=== PATIENT | female | born 1945 | race Caucasian/White ===

== ENCOUNTER 2017-07-10 09:39 | Inpatient (IN) | payer OTHER ==
[2017-05-25 09:58] VITALS: BMI 35.0
--- NOTE | 2017-05-25 10:26 | PAT Medication Instructions ---
Service Date May 25, 2017. Current Home Medication List Aspirin (Aspirin Ec), 81 MG PO 3XWEEK Ibuprofen Tab (Advil), 400 MG PO PRN Simvastatin (Zocor), 10 MG PO QPM Medication Instructions For Your Scheduled Surgery - Continue as directed: Aspirin (Aspirin Ec), 81 MG PO 3XWEEK - Hold the following medications the morning of surgery: Ibuprofen Tab (Advil), 400 MG PO PRN (otherwise okay to continue per surgeon) - Take the following medications as scheduled the night before surgery: Simvastatin (Zocor), 10 MG PO QPM Nothing to eat or drink after midnight If you have any questions please call us at [phone] or [phone] or [phone]
[2017-05-25 10:58] LABS: BASO % 0.5 %; BASO ABS # 0.02 K/uL (0-0.2); COMPLETE YES; EOS % 2.7 %; HEMATOCRIT 39.3 % (37-47); IG% 0.2 %; LYMPH % 22.2 %; LYMPH ABS # 0.91 K/uL (1.2-3.4); MEAN CELL VOLUME 86.4 fL (80-100); MEAN CORPUSCULAR HEMOGLOBIN 29.7 pg (25-34); MEAN CORPUSCULAR HGB CONC 34.4 g/dl (32-36); MEAN PLATELET VOLUME 9.7 fL (7.4-10.4); MONO % 9.3 %; NEUT % 65.1 %; PLATELET COUNT 168 K/uL (130-400); RED BLOOD COUNT 4.55 M/uL (4.2-5.4)
--- NOTE | 2017-05-25 11:13 | DIAGNOSTIC IMAGING REPORT ---
CHEST PREADMISSION(PA/LAT) CLINICAL HISTORY: Preoperative chest COMPARISON STUDY: No previous studies for comparison. FINDINGS: The heart is mildly enlarged. There is no failure. There is no focal pulmonary consolidation. There are no pleural effusions.[ IMPRESSION: No active disease in the chest. Electronically signed by: Jem Munoz M.D. 05/25/2017 11:11 AM Dictated Date/Time: 05/25/2017 11:04 AM
[2017-05-25 11:19] LABS: PARTIAL THROMBOPLASTIN RATIO 1.1; PROTHROMBIN TIME (PATIENT) 11.1 SECONDS (9.0-12.0)
[2017-05-25 12:35] LABS: BUN/CREATININE RATIO 22.4 (10-20); CREATININE 0.77 mg/dl (0.60-1.20); POTASSIUM 4.6 mmol/L (3.5-5.1)
--- NOTE | 2017-07-05 22:56 | HISTORY & PHYSICAL EXAMINATION ---
DATE OF ADMISSION: 07/10/2017 CHIEF COMPLAINT: Bilateral knee pain and discomfort, right side greater than left. HISTORY OF PRESENT ILLNESS: This is a 72-year-old female who presents for treatment of her knees. She got a fairly long history of bilateral knee pain and discomfort, right side bit worse than left. Gradually this has gotten worse over the past several years. She initially responded to injections, but this has become less successful over time. She describes global pain in her knee. The more she walks, the more she hurts. Walking tolerance is limited. She has nighttime pain. She would like to proceed with knee replacement surgery. PAST MEDICAL HISTORY: Some elevated cholesterol. PAST SURGICAL HISTORY: Knee arthroscopy. ALLERGIES: KEFLEX CAUSES A RASH. SHE ALSO DESCRIBES ALLERGY TO TETANUS. CURRENT MEDICATIONS: Zocor 10 mg a day. SOCIAL HISTORY: A 72-year-old female patient. She is . FAMILY HISTORY: Noncontributory. REVIEW OF SYSTEMS: Negative for diabetes, neurologic problems, vascular problems, bleeding disorders. No chest pain or shortness of breath. No history of DVT or PE. PHYSICAL EXAMINATION: GENERAL: Reveals a healthy pleasant elderly female who looks in pretty good health. HEENT: Benign. NECK: Supple. No lymphadenopathy. LUNGS: Clear to auscultation. HEART: Regular rate and rhythm. ABDOMEN: Soft, nontender, nondistended. EXTREMITIES: Grossly neurovascularly intact except as follows. Examination of the right knee reveals the patient walks with valgus alignment to her knee. It is exacerbated by weightbearing. Range of motion is full extension to 125 degrees of flexion. Small knee effusion. No instability with varus valgus stressing. No pain with hip motion. X-RAYS: X-rays of the right knee revealed advanced right knee DJD. She has complete loss of her lateral joint space. She has valgus alignment to her knee. ASSESSMENT: A 72-year-old female with bilateral knee degenerative joint disease, right side greater than left. There has been less responsive to conservative treatment. This is affecting her quality of life and she would like to have her right knee replaced. PLAN: We are going to take her to operating room and do a right total knee replacement. The risks and benefits of this procedure were explained to the patient including but not limited to DVT, PE, , infection, neurological injury, vascular injury, bleeding problem, pain, limited range of motion, stiffness, failure to relief symptoms, incomplete relief of symptoms, need for further surgery in the future, fracture, leg length inequality, nerve palsy, etc. The patient understands and desires to proceed. Informed consent was obtained. The patient does have this Keflex allergy so we will give her vancomycin preoperatively. Preoperative workup was negative for anything abnormal at labs or with chest x-ray. MTDD
--- NOTE | 2017-07-07 20:23 | HISTORY & PHYSICAL EXAMINATION ---
DATE OF ADMISSION: 07/10/2017 I know I have already dictated a H&P on this patient but she decided to have her other knee replaced. I am going to dictate a new H&P. CHIEF COMPLAINT: Bilateral knee pain and discomfort, left side now worse than the right. HISTORY OF PRESENT ILLNESS: This is a 72-year-old female who presents for surgical treatment of her left knee. She has a long history of bilateral knee pain and discomfort. In general, the right side has been more bothersome than the left. Both of them hurt quite a bit. She was actually scheduled for right knee replacement, but her left knee has been bothering more over the past several weeks and would like to have her left knee replaced. She initially responded to injection treatments, but become less successful over time. She describes global pain. The more she walks, the more she hurts. Walking tolerance is a couple of blocks. She now like to have her left knee replaced. PAST MEDICAL HISTORY: 1. Elevated cholesterol. 2. Knee arthroscopy. PAST SURGICAL HISTORY: Knee arthroscopy. ALLERGIES: KEFLEX WHICH CAUSES A RASH. SHE HAS NOT HAD IN YEARS. SHE DESCRIBES ALLERGIES TO TETANUS. CURRENT MEDICATIONS: Zocor 10 mg a day. SOCIAL HISTORY: A 72-year-old female patient from [place]. She is . FAMILY HISTORY: Noncontributory. REVIEW OF SYSTEMS: Negative for diabetes, neurologic problems, vascular problems, bleeding disorders. Denies any chest pain or shortness of breath. No history of DVT or PE. PHYSICAL EXAMINATION: GENERAL: Reveals a pleasant, healthy elderly female. She looks to be in pretty good health. HEENT: Benign. NECK: Supple. No lymphadenopathy. LUNGS: Clear to auscultation. HEART: Regular rate and rhythm. ABDOMEN: Soft, nontender, nondistended. EXTREMITIES: Grossly neurovascularly intact except as follows: Examination of left knee, patient walks with valgus alignment to the knee. This is made worse with weightbearing. Small knee effusion. Range of motion is near full extension at 125 degree of flexion. She has no instability. X-RAYS: X-rays reveal advanced bilateral knee DJD, primarily involving the lateral compartment. She has valgus alignment to both knees. She has osteophytes, particularly laterally between subchondral sclerosis. ASSESSMENT: A 72-year-old female with advanced bilateral knee degenerative joint disease. She was actually scheduled to have a right knee replaced but the left knee has been more painful recently and would like to have her left knee replaced. PLAN: We will take her to the operating room and do a left total knee replacement. The risks and benefits of this procedure were explained to the patient including but not limited to DVT, PE, , infection, neurological injury, vascular injury, bleeding problem, pain, limited range of motion, stiffness, failure to relieve symptoms, incomplete relief of symptoms, need for further surgery in the future, fracture, leg length inequality, nerve palsy, etc. The patient understands and desires to proceed. Informed consent was obtained. SHE HAS THIS REACTION TO KEFLEX. We will give her vancomycin preoperatively.
[~2017-07-10] VITALS: Ht 160 cm; Wt 91.3 kg
[2017-07-10] VITALS (9 sets, daily range): BP systolic 124–164; BP diastolic 72–93; PULSE 61–81; TEMP 36.2–36.6; O2SAT 66–100; Ht 160 cm; Wt 91.3 kg
[~2017-07-10 09:39] MED LIST: ACETAMINOPHEN 500 MG TAB PO SCH; ASPI81TA28 PO; BUPIVACAINE 0.5 % 5 MG/1 ML PF 10ML VIAL ONE; BUPIVACAINE LIPOSOME 266 MG, BUPIVACAINE/EPINEPHRINE INJ 50 ML, SODIUM CHLORIDE 0.9% PF... INFIL SCH; FAMOTIDINE 20 MG TAB PO SCH; GABAPENTIN 300 MG CAP PO SCH; IBUP-103 PO; LACTATED RINGER'S 1000ML 1,000 ML IV SCH; LACTATED RINGER'S 1000ML 500 ML IV ONE; LACTATED RINGER'S 1000ML IV SCH; METOCLOPRAMIDE HCL 10 MG TAB PO SCH; SCOPOLAMINE 1.5 MG TDSY TD SCH; SIMV10TA2 PO; TRANEXAMIC ACID INJ 1,000 MG in SODIUM CHLORIDE 0.9% 100ML 100 ML IV SCH; VANCOMYCIN 1GM/270ML NSS 270 ML IV SCH; VANCOMYCIN INJ 1,500 MG in SODIUM CHLORIDE 0.9% 500ML 500 ML IV SCH
--- NOTE | 2017-07-10 11:55 | History & Physical Bridge Note ---
H&P Re-Evaluation Bridge Note: I have examined the patient, reviewed the History & Physical and in the interval since the performance of the History & Physical I have noted the following changes of clinical significance: Plan is for Left TKR. No changes noted
[2017-07-10] MEDS ORDERED: EpHEDrine SULFATE INJ 50 MG/ML AMP IV PRN (12:15)
[2017-07-10] MEDS ORDERED: ONDANSETRON INJ 2 MG/ML 2 ML VIAL IV PRN ×2 (12:15→15:45)
[2017-07-10] MEDS ORDERED: FENTANYL CITRATE INJ 50 MCG/1 ML 2 ML VIAL IV PRN (12:15)
[2017-07-10] MEDS ORDERED: ATROPINE SULFATE 0.1 MG/ML 5ML SYR IV PRN (12:15)
[2017-07-10] MEDS ORDERED: LIDOCAINE HCL 2% 2 ML VIAL (20MG/ML) ONE (13:27)
[2017-07-10] MEDS ORDERED: PROPOFOL IV EMULSION 10 MG/ML 20 ML VIAL IV ONE (13:27)
[2017-07-10] MEDS ORDERED: MIDAZOLAM HCL 1 MG/ML 2ML VIAL ONE (13:28)
[2017-07-10] MEDS ORDERED: FENTANYL CITRATE INJ 50 MCG/1 ML 2 ML VIAL ONE (13:28)
[2017-07-10] MEDS ORDERED: BUPIVACAINE/EPINEPHRINE 0.25% 1:200,000 30 ML VIAL ONE (13:35)
[2017-07-10] MEDS ORDERED: SODIUM CHLORIDE 0.9% PF 50 ML VIAL ONE (13:35)
[2017-07-10] MEDS ORDERED: BACITRACIN 50000 UNIT VIAL ONE (13:36)
[2017-07-10] MEDS ORDERED: BUPIVACAINE LIPOSOME 1/3% 266 MG/20 ML VIAL INFIL ONE (13:36)
[2017-07-10] MEDS ORDERED: ONDANSETRON INJ 2 MG/ML 2 ML VIAL ONE (15:14)
--- NOTE | 2017-07-10 15:36 | [facility] Post Operative Brief Note ---
Immediate Operative Summary Operative Date Jul 10, 2017. Pre-Operative Diagnosis Left Degenerative Joint Disease Post-Operative Diagnosis Same as preoperative diagnosis Procedure(s) Performed Left Total Knee Replacement Surgeon Dr. Golden Dye Maker Surgeon(s) Judah Camarena PA-C Estimated Blood Loss 50ml Findings Left Knee DJD Fluids (cc crystalloids) 1700 cc Specimens a. left knee bone and tissue Drains None Anesthesia Spinal Complication(s) None Disposition Recovery Room / PACU
[2017-07-10] MEDS ORDERED: METOCLOPRAMIDE HCL INJ 5 MG/ML 2 ML VIAL IV PRN (15:45)
[2017-07-10] MEDS ORDERED: BISACODYL 10 MG SUPP PR PRN (15:45)
[2017-07-10] MEDS ORDERED: MAGNESIUM HYDROXIDE SUSP 30 ML UDC PO PRN (15:45)
[2017-07-10] MEDS ORDERED: ALUMINUM/MAGNESIUM/SIMETH (MAALOX MAX) 30 ML UDC PO PRN (15:45)
[2017-07-10] MEDS ORDERED: HYDROmorphone INJ 0.5 MG/0.5 ML SYR IV PRN (15:45)
[2017-07-10] MEDS ORDERED: SILVER SULFADIAZINE 1% CR 50 GM JAR EXT PRN (15:45)
[2017-07-10] MEDS ORDERED: TRAMADOL HCL 50 MG TAB PO PRN (15:45)
[2017-07-10] MEDS ORDERED: ZOLPIDEM TARTRATE 5 MG TAB PO PRN (15:45)
[2017-07-10] MEDS: CHECK SCOPOLAMINE PATCH PLACEMENT SCH (16:00)
--- NOTE | 2017-07-10 16:01 | DIAGNOSTIC IMAGING REPORT ---
TWO VIEWS LEFT KNEE CLINICAL HISTORY: Postoperative examination. FINDINGS: AP and crosstable lateral portable views of the left knee are obtained. A left knee arthroplasty is in near anatomic alignment. There has been undersurface remodeling of the patella. No acute fracture is seen. There are expected postoperative changes around the knee including skin clips, soft tissue edema, and subcutaneous gas. IMPRESSION: Expected postoperative changes status post left knee arthroplasty. No acute fracture is seen. Electronically signed by: Frank Reyna M.D. 07/10/2017 3:59 PM Dictated Date/Time: 07/10/2017 3:59 PM
--- NOTE | 2017-07-10 17:06 | Anesthesiology Progress Note ---
Anesthesia Post Op Note Date & Time Jul 10, 2017 at 17:06 Vital Signs Pain Intensity: 0 Vital Signs Past 12 Hours Date Time Temp Pulse Resp B/P (MAP) Pulse Ox O2 Delivery O2 Flow Rate FiO2 07/10/17 16:30 36.3 61 18 124/72 (89) 100 Nasal Cannula 2.0 07/10/17 16:20 36.5 65 18 121/65 100 Nasal Cannula 2 07/10/17 16:10 63 16 114/67 100 Nasal Cannula 2 07/10/17 16:00 67 12 113/60 100 Nasal Cannula 2 07/10/17 15:50 66 12 104/56 100 Nasal Cannula 2 07/10/17 15:42 36.6 73 11 109/52 97 Nasal Cannula 2 07/10/17 11:25 36.6 74 20 164/93 66 Room Air Notes Mental Status: alert / awake / arousable, participated in evaluation Pt Amnestic to Procedure: Yes Nausea / Vomiting: adequately controlled Pain: adequately controlled Airway Patency, RR, SpO2: stable & adequate BP & HR: stable & adequate Hydration State: stable & adequate Anesthetic Complications: no major complications apparent
[2017-07-10] MEDS: D5W AND 1/2NSS + 20MEQ KCL 1,000 ML IV SCH (18:13)
[2017-07-10] MEDS: KETOROLAC TROMETHAMINE 15 MG/ML VIAL IV. SCH ×2 (18:14→23:59)
[2017-07-10] MEDS: FERROUS GLUCONATE 324 MG TAB PO SCH (18:15)
--- NOTE | 2017-07-10 19:37 | OPERATIVE REPORT ---
DATE OF OPERATION: 07/10/2017 SURGEON: Dr. Damian Golden. STEWARDING SUPERVISOR: TAYLOR Martin. PREOPERATIVE DIAGNOSIS: Left knee degenerative joint disease. POSTOPERATIVE DIAGNOSIS: Same. PROCEDURE PERFORMED: Left cemented posterior stabilized total knee arthroplasty. COMPLICATIONS: None. ESTIMATED BLOOD LOSS: 50 mL FLUID REPLACEMENT: 1700 mL crystalloid fluid replacement. TOURNIQUET TIME: 51 minutes at 300 mmHg. ANESTHESIA: Spinal with adductor canal block. DRAINS: None. SPECIMENS: Left knee sent for pathology. OPERATIVE INDICATIONS: The patient is a 72-year-old female who has had a fairly long history of bilateral knee pain and discomfort. She has been through extensive conservative treatment and continued to have persistent pain, discomfort and more recently instability in her knee. She was actually scared to have a right knee replaced, but her left knee became more painful and she elected to proceed with left knee replacement. She had similar severe arthritic changes in both knees. OPERATIVE FINDINGS: Operative findings revealed advanced left knee DJD. She had grade 4 [id number] disease primarily involving the lateral compartment. She had a large knee joint effusion. She had a fixed valgus deformity to her knee. She did have hyperextension laxity to her knee. OPERATIVE IMPLANTS: Operative implants consisted of: 1. Biomet Vanguard size 62.5 left posterior stabilized femoral component. 2. Biomet size 67 tibial tray. 3. A 12 mm posterior stabilized polyethylene insert. 4. A 31 x 8 all poly patella. OPERATIVE PROCEDURE: The patient was taken to the operating room, identified and placed on the operating table in supine position. All contact areas were appropriately padded. IV antibiotics were provided by the anesthesia team. A spinal anesthetic and adductor canal block had been provided in the holding area. Leger catheter was placed in sterile fashion. Left thigh tourniquet was then placed and the left lower extremity was then prepped and draped in the usual sterile fashion. Left leg was elevated and exsanguinated with Esmarch and tourniquet was placed at 300 mmHg. An anterior approach of the left knee was then performed through a longitudinal incision centered over the patella. Sharp dissection was carried out through the subcutaneous tissues down to the level of the extensor mechanism. A medial parapatellar arthrotomy incision was made. Subperiosteal dissection was carried out medially. There was extra ossicle on the medial part of the patella which was removed. It looked like a secondary center of ossification. The patella was then everted. The fat pad was resected from beneath the patellar tendon. The knee was flexed. The osteophytes were taken off the distal femur. The ACL and PCL were then released from the distal femur and the tibia subluxated anteriorly. The external tibial alignment jig was then placed and adjusted 12 mm medially. Proximal tibial cut was made to remove about 4 mm of bone from the medial side. The bone was fairly osteoporotic. The tibia was sized to a size 67. Attention was then drawn to the femur. The distal femur was entered with a sharp drill. The intramedullary canal was suctioned. A left 5-degree valgus cutting guide was placed. Distal femoral cutting block was pinned in place. I did not take any extra distal bone off the femur. We took the standard cut as she had a hyperextension laxity to her knee. After distal femoral cut was made I brought the knee out into extension. I did a little pie crusting of the IT band to equalize the extension gap. The knee was then flexed. The femur was sized to a size 62.5. The AP cutting block was pinned parallel to the epicondylar axis, which was 5 degrees of external rotation. The anterior cut, anterior chamfer, posterior cut, and posterior chamfer cuts were made. Box cutting guide was placed, and adjusted laterally. The box cut was made. The knee was flexed. The remnants of the medial and lateral meniscus were excised. The osteophytes were taken off the posterior aspect of the femur. Trial femoral component was placed. Tibial tray was pinned in maximum external rotation and the drill and stem punch were used to create defect in proximal tibia for the tibial tray. The knee was then trialed and the 12 mm insert fit most appropriately. She got full extension, just slight hyperextension. I wanted to try to correct her hyperextension deformity. Attention was then drawn to the patella. The patella was cleaned of all soft tissues. Patella thickness measured 22 mm in thickness and was cut down to 13. It was sized to a size 31 patella. Lug holes were drilled for the 31 patella. Lateral osteophyte was removed. Patella button was placed. The knee was taken through range of motion and the patella tracked with just a slight bit of tilt. I elected to accept this. All trial implants were removed. Attention was then drawn toward placement of permanent components. A bone plug was placed in the distal femur to limit blood loss. A double batch of Palacos G cement was mixed. A left size 62.5 posterior stabilized component, a 67 tibial tray, a 12mm PS insert and a 31 by 8 all poly patella was cemented in place. The knee was brought out into full extension until the cement hardened. A final cement check was then performed. The pericapsular tissues were injected with a total of a 100 mL combination of 20 mL of Exparel, 30 mL of normal saline, 50 mL of 0.25% Marcaine with epinephrine. The patient did receive 1 gram of tranexamic acid. The tourniquet was then let down for a tourniquet time of 51 minutes. Hemostasis was assured with use of electrocautery. The extensor mechanism was then closed with a combination of #1 PDS suture and #1 Vicryl suture in a [id number] fashion. The extensor mechanism was checked and found to be intact. Subcutaneous tissues were then closed with 2-0 Dexon suture in a buried interrupted fashion. Skin was closed with skin jean marie. Leg was then cleaned and dried and a sterile dressing of Xeroform, 4 x 4, sterile cast padding and Noble bandage were applied. The patient was then transferred to the recovery room in stable condition. The patient tolerated the procedure well with no complications. All needle and sponge counts were correct at the end of the operation. I attest to the content of the Intraoperative Record and any orders documented therein. Any exceptions are noted below. FLAKITO
[2017-07-10] MEDS ORDERED: TRANEXAMIC ACID INJ 1,000 MG in SODIUM CHLORIDE 0.9% 100ML 100 ML IV SCH (20:00)
[2017-07-10] MEDS: DOCUSATE SODIUM 100 MG CAP PO SCH (20:45)
[2017-07-10] MEDS: SIMVASTATIN 10 MG TAB PO SCH (20:45)
[2017-07-10] MEDS: ASPIRIN 325 MG ECTAB PO SCH (20:45)
[2017-07-10] MEDS: SENNA 8.6 MG TAB PO SCH (20:45)
[2017-07-10] MEDS: ACETAMINOPHEN 500 MG TAB PO SCH (21:49)
[2017-07-10] MEDS ORDERED: VANCOMYCIN INJ 1,500 MG in SODIUM CHLORIDE 0.9% 500ML 500 ML IV ONE (22:00)
[2017-07-10] MEDS ORDERED: VANCOMYCIN INJ 1,500 MG in SODIUM CHLORIDE 0.9% 250ML 250 ML IV SCH (22:00)
[2017-07-11] MEDS: D5W AND 1/2NSS + 20MEQ KCL 1,000 ML IV SCH ×3 (02:51→23:37)
[2017-07-11 03:20] VITALS: BP 132/74; PULSE 74; TEMP 36.8; O2SAT 95
[2017-07-11] MEDS: ACETAMINOPHEN 500 MG TAB PO SCH ×3 (05:28→21:25)
[2017-07-11] MEDS: KETOROLAC TROMETHAMINE 15 MG/ML VIAL IV. SCH ×4 (05:29→23:39)
[2017-07-11 06:05] LABS: HEMATOCRIT 30.5 % (37-47); MEAN CELL VOLUME 87.4 fL (80-100); MEAN CORPUSCULAR HEMOGLOBIN 29.2 pg (25-34); MEAN CORPUSCULAR HGB CONC 33.4 g/dl (32-36); MEAN PLATELET VOLUME 9.5 fL (7.4-10.4); PLATELET COUNT 137 K/uL (130-400); RED BLOOD COUNT 3.49 M/uL (4.2-5.4); WHITE BLOOD COUNT 5.13 K/uL (4.8-10.8)
[2017-07-11 06:33] LABS: CALCIUM 8.2 mg/dl (8.5-10.1); CREATININE 0.74 mg/dl (0.60-1.20); POTASSIUM 4.1 mmol/L (3.5-5.1)
[2017-07-11 07:18] VITALS: BP 125/80; PULSE 67; TEMP 36.7; O2SAT 96
[2017-07-11] MEDS: MULTIVITAMIN TAB PO SCH (08:55)
[2017-07-11] MEDS: PANTOprazole SOD 40 MG TAB PO SCH (08:56)
[2017-07-11] MEDS: FERROUS GLUCONATE 324 MG TAB PO SCH ×3 (08:56→18:03)
[2017-07-11] MEDS: ASPIRIN 325 MG ECTAB PO SCH ×2 (08:56→21:24)
[2017-07-11] MEDS: DOCUSATE SODIUM 100 MG CAP PO SCH ×2 (08:56→21:24)
[2017-07-11] MEDS: CHECK SCOPOLAMINE PATCH PLACEMENT SCH ×4 (08:57→23:39)
[2017-07-11 11:05] VITALS: BP 112/72; PULSE 71; TEMP 36.6; O2SAT 96
[2017-07-11 15:06] VITALS: BP 119/72; PULSE 77; TEMP 36.7; O2SAT 95
--- NOTE | 2017-07-11 18:20 | PROGRESS NOTE ---
DATE: 07/11/2017 SUBJECTIVE: A 72-year-old female postop day #1 from a left knee replacement. She is doing pretty well. Denies any significant pain today. No chest pain or shortness of breath. Not feeling dizzy or lightheaded. OBJECTIVE: VITAL SIGNS: Temperature 36.7. Vital signs stable. GENERAL: Reveals a pleasant elderly female. She is sitting up in bed and talking to her son. She looks comfortable. LUNGS: Clear to auscultation. HEART: Has a regular rate and rhythm. ABDOMEN: Soft, nontender, nondistended. EXTREMITIES: Grossly neurovascularly intact except as follows: Examination of left lower extremity reveals the dressing to be clean, dry and intact. She can dorsiflex and plantarflex her foot appropriately. She is neurologically intact. LABORATORY DATA: Hemoglobin 10.2, hematocrit 30.5. Electrolytes are stable. ASSESSMENT: A 72-year-old white female postop day 1 from left knee replacement, doing pretty well. Pain is controlled. Therapy has gone reasonably well. PLAN: 1. DVT prophylaxis including thigh-high TEDs, SCDs, and aspirin twice a day. 2. PT/OT. Weightbearing as tolerated. Left total knee protocol. 3. Pain control. Doing well with current pain regimen, really having very minimal pain. 4. Disposition: She is hoping to be discharged home with some home health and her 's assistance once medically stable.
[2017-07-11 19:53] VITALS: BP 118/69; PULSE 73; TEMP 36.9; O2SAT 97
[2017-07-11] MEDS ORDERED: FRRG PO (20:27)
[2017-07-11] MEDS ORDERED: ACET-24 PO (20:27)
[2017-07-11] MEDS ORDERED: ASPEC325 PO (20:27)
[2017-07-11] MEDS ORDERED: ULT50X PO (20:27)
--- NOTE | 2017-07-11 20:30 | Discharge Instructions ---
Discharge Instructions Date of Service Jul 11, 2017. Admission Reason for Admission: Left Knee Degenerative Joint Disease Discharge Discharge Diagnosis / Problem: Left Knee Replacement Discharge Goals Goal(s): Decrease discomfort, Improve function, Increase independence, Improve disease control, Therapeutic intervention Activity Recommendations Activity Limitations: per Instructions/Follow-up section Weightbearing Status: Left weightbearing . Instructions / Follow-Up Instructions / Follow-Up ACTIVITY RECOMMENDATIONS: Physical Therapy: * You will go to physical therapy three times each week for four to six weeks after your surgery in order to regain your knee range of motion and to retrain your knee to work properly. * It is just as important to make sure you are getting your knee perfectly straight as it is to regain your knee bend. * Taking a pain pill an hour before therapy can help you have a more productive and comfortable therapy session. Home Exercise: * You were shown a series of exercises (heel props, heel slides, etc.) in the hospital. Do these exercises three to four times each day including the exercises you were shown in physical therapy. Walking: * Get up and walk several times each day. For the first four weeks, try not to stand or walk for more than one hour at a time. If you do stand or walk for more than one hour, you will not hurt anything, but your knee and leg will likely swell. * As you feel comfortable, you may change from the walker or crutches to a cane and then to independent walking. MEDICATIONS: New Medicine: * You will likely be taking one or more of these medications: 1. Tramadol - A quick and shorter-acting pain medication. Take one to two tablets every four to six hours to lessen your pain. 2. Iron Sulfate - Take three times each day for the month after surgery to help you replace the blood lost during surgery. 3. Aspirin - Thins your blood to lessen the chance of forming a blood clot. * The most common side effects of pain medicine and iron are nausea and constipation. If nausea or constipation is too much of a problem or if you have any questions about your new medicines or doses, call [facility] at [phone]. We will try to help you manage these issues. VERY IMPORTANT TO READ AND REVIEW" Pain: * The immediate post-operative period after knee replacement surgery is often quite painful. * You are given a prescription for pain medicine. You should take it, as directed, when you need it, especially before physical therapy and before going to bed. Pain that interferes with sleep is very common and can last several months. * You will likely need pain medicine for the first four to six weeks. It will not stop all of the pain. The pain will lessen and as you feel better, you may change to milder pain medicine such as Tylenol. * The most common side effects of pain medicine are nausea and constipation, so don't take more than you need. SPECIAL CARE INSTRUCTIONS: TEDs/Elastic Stockings: * The white elastic stockings help limit swelling and prevent blood clots from forming in your legs. The more you wear them, the more they work. * Wear them for six weeks after knee replacement surgery and four weeks after partial knee replacement. Prevention of Infection: * Take antibiotics one hour before any dental cleaning, dental work, urological procedure, gastrointestinal procedure or any invasive surgery in order to prevent your new joint from getting infected. * You may get the antibiotics from the doctor performing the procedure or you may call our office at before and we will call in a prescription to the pharmacy of your choice. Things to Watch For: * Drainage from the incision site that occurs more than one week after your surgery. * Severely increased knee/leg pain or swelling. * Increased redness at the incision site. * Fever above 102 degrees Fahrenheit. * Unusual chest pain or shortness of breath. * Unusual pain or burning with urination. Call [facility] at with any of the above problems or if you have any questions about your medicines or recovery. FOLLOW UP VISIT: Make an appointment to see your doctor for approximately two weeks after surgery for a progress check and staple removal by calling the office at . Current Hospital Diet Patient's current hospital diet: Regular Diet Discharge Diet Recommended Diet: Regular Diet Procedures Procedures Performed: Left Total Knee Replacement Pending Studies Studies pending at discharge: no Medical Emergencies . Who to Call and When: Medical Emergencies: If at any time you feel your situation is an emergency, please call [phone] immediately. . Non-Emergent Contact Non-Emergency issues call your: Surgeon . "Provider Documentation" section prepared by Damian Golden. . VTE Core Measure Inpt VTE Proph given/why not?: Other Anticoagulation, T.E.D. Stockings, SCD's
[2017-07-11] MEDS: SIMVASTATIN 10 MG TAB PO SCH (21:24)
[2017-07-11] MEDS: SENNA 8.6 MG TAB PO SCH (21:24)
[2017-07-11 23:03] VITALS: BP 133/77; PULSE 82; TEMP 37; O2SAT 96
[2017-07-12 02:50] VITALS: BP 145/81; PULSE 88; TEMP 36.9; O2SAT 95
[2017-07-12] MEDS: ACETAMINOPHEN 500 MG TAB PO SCH ×2 (05:27→14:08)
[2017-07-12] MEDS: KETOROLAC TROMETHAMINE 15 MG/ML VIAL IV. SCH ×2 (05:29→11:53)
[2017-07-12 05:57] VITALS: BP 149/85; PULSE 80; TEMP 36.6; O2SAT 98
[2017-07-12] MEDS ORDERED: NURSING VERBAL MED ORDER ONE (07:15)
[2017-07-12] MEDS: CHECK SCOPOLAMINE PATCH PLACEMENT SCH (07:25)
[2017-07-12] MEDS: PANTOprazole SOD 40 MG TAB PO SCH (07:26)
[2017-07-12] MEDS: MULTIVITAMIN TAB PO SCH (07:26)
[2017-07-12] MEDS: FERROUS GLUCONATE 324 MG TAB PO SCH ×2 (07:26→12:29)
[2017-07-12] MEDS: ASPIRIN 325 MG ECTAB PO SCH (08:40)
[2017-07-12] MEDS: DOCUSATE SODIUM 100 MG CAP PO SCH (08:40)
[2017-07-12 10:19] VITALS: BP 149/85; PULSE 80; TEMP 36.6; O2SAT 98
--- NOTE | 2017-07-12 11:41 | PROGRESS NOTE ---
DATE: 07/12/2017 SUBJECTIVE: A 72-year-old female postop day 2 from total knee arthroplasty. She is doing pretty well. Still not have much in the way of pain. Denies any chest pain or shortness of breath. Not feeling dizzy or lightheaded. OBJECTIVE: VITAL SIGNS: Temperature 36.6. Vital signs stable. GENERAL: Reveals a pleasant elderly female. The patient is sitting on bed, looks pretty comfortable. LUNGS: Clear to auscultation. HEART: Regular rate and rhythm. ABDOMEN: Soft, nontender, nondistended. EXTREMITIES: Grossly neurovascularly intact except as follows: Examination of the left lower extremity reveals the leg to be well aligned. Dressing is clean, dry and intact. Just a little bit of drainage on the dressing. She can dorsiflex and plantarflex her foot appropriately. She is neurologically intact. ASSESSMENT: A 72-year-old female postop day 2 from a left knee replacement, doing pretty well. Pain is remarkably well controlled. PLAN: 1. DVT prophylaxis including thigh-high TEDs, SCDs, and aspirin twice a day. 2. PT/OT. Weightbearing as tolerated. Left total knee protocol. 3. Pain control, doing well with current pain regimen. 4. Disposition: Plan is to discharge her home with some home health once medically stable.
--- NOTE | 2017-07-16 16:44 | DISCHARGE SUMMARY ---
ADMITTING PHYSICIAN AND SURGEON: Damian Golden MD. ADMITTING DIAGNOSIS: Left knee degenerative joint disease. SURGERY PERFORMED: Left total knee arthroplasty. SECONDARY DIAGNOSIS: Include elevated cholesterol. CONSULTS: None obtained. HISTORY AND PHYSICAL EXAMINATION: Well documented in the patient's chart. HOSPITAL COURSE: The patient was admitted on 07/10/2017, underwent total knee arthroplasty, tolerated the procedure well. There were no complications. She was transferred to the PACU postoperatively and later to the orthopedic floor for further care. She was given vancomycin for antibiotic prophylaxis, AMBER stockings, SCDs, and aspirin for DVT prophylaxis. Hemoglobin, hematocrit, and vital signs were monitored during her hospital stay and remained stable. She developed some mild postoperative anemia with a hemoglobin of 10.2. She did not require any blood transfusions. There were no complications. By postoperative day 2, she was tolerating a general diet. Pain was controlled with oral pain medicines. She was participating in physical therapy and had no signs or symptoms of deep vein thrombosis. On postop day 2, she was discharged home and then set up with home health services, given printed discharge instructions including new prescriptions for extra strength Tylenol, aspirin 325 mg b.i.d., iron supplement, and tramadol. Continue her home medicines with the exception of her home dose of aspirin, which was changed. Continue physical therapy, weightbearing as tolerated, AMBER stockings. Follow up in 10-12 days or sooner if there are any problems or concerns.
== END 2017-07-12 14:38 | disposition home health service (06) | DRG 470 ==
LOC: C.ACU 09:39 → C.3E 10:30 → ENRESERV 16:05
PROVIDERS: ADMIT Orthopaedic Surgery Sports Medicine; ATTEND Orthopaedic Surgery Sports Medicine
PROC: 0SRD0J9 Replacement of Left Knee Joint with Synthetic Substitute, Cemented, Open Approach (ICD-10-PCS; principal; 2017-07-10 12:45)
DX: M17.0 Bilateral primary osteoarthritis of knee (principal); E78.00 Pure hypercholesterolemia, unspecified; Z88.1 Allergy status to other antibiotic agents

== ENCOUNTER → 2018-05-01 | Outpatient (CLI) | payer OTHER ==
[~2018-05-01] MED LIST changes: +ACET-24 PO; -ACETAMINOPHEN 500 MG TAB PO SCH; +ASPEC325 PO; -ASPI81TA28 PO; -BUPIVACAINE 0.5 % 5 MG/1 ML PF 10ML VIAL ONE; -BUPIVACAINE LIPOSOME 266 MG, BUPIVACAINE/EPINEPHRINE INJ 50 ML, SODIUM CHLORIDE 0.9% PF... INFIL SCH; -FAMOTIDINE 20 MG TAB PO SCH; +FRRG PO; -GABAPENTIN 300 MG CAP PO SCH; -LACTATED RINGER'S 1000ML 1,000 ML IV SCH; -LACTATED RINGER'S 1000ML 500 ML IV ONE; -LACTATED RINGER'S 1000ML IV SCH; -METOCLOPRAMIDE HCL 10 MG TAB PO SCH; -SCOPOLAMINE 1.5 MG TDSY TD SCH; -TRANEXAMIC ACID INJ 1,000 MG in SODIUM CHLORIDE 0.9% 100ML 100 ML IV SCH; +ULT50X PO; -VANCOMYCIN 1GM/270ML NSS 270 ML IV SCH; -VANCOMYCIN INJ 1,500 MG in SODIUM CHLORIDE 0.9% 500ML 500 ML IV SCH
[2018-05-01 11:37] LABS: ALBUMIN 3.9 gm/dl (3.4-5.0); ALKALINE PHOSPHATASE 93 U/L (45-117); ALT/SGPT 21 U/L (12-78); AST/SGOT 17 U/L (15-37); BLOOD UREA NITROGEN 22 mg/dl (7-18); CALCIUM 9.2 mg/dl (8.5-10.1); CARBON DIOXIDE 27 mmol/L (21-32); CREATININE 0.74 mg/dl (0.60-1.20); GLUCOSE 92 mg/dl (70-99); SODIUM 140 mmol/L (136-145); TOTAL PROTEIN 7.1 gm/dl (6.4-8.2)
== END | disposition home or self-care (01) ==
LOC: C.LAB1850 10:13
PROVIDERS: ATTEND Internal Medicine Endocrinology, Diabetes & Metabolism
DX: E04.2 Nontoxic multinodular goiter (principal); S62.109A Fracture of unspecified carpal bone, unspecified wrist, initial encounter for closed fracture; X58.XXXA Exposure to other specified factors, initial encounter

== ENCOUNTER 2019-07-08 09:34 | Inpatient (IN) ==
--- NOTE | 2019-06-16 20:49 | PAT Medication Instructions ---
Medication Instructions Date of Service June 16, 2019 Home Medications Medications aspirin 81 mg PO 3XWK 06/05/19 [History Confirmed 06/05/19] Continue as directed aspirin 81 mg PO 3XWK Other Notes If you have any questions please call us at [phone] or [phone] or [phone] or [phone]
--- NOTE | 2019-06-17 09:09 | Anesthesiology Consultation ---
Date of Service June 17, 2019 Assessment & Plan (1) Encounter for pre-operative examination: Chart Review Chart Review: Pending: Refer to Additional Notes / Consult section (pending preop testing (labs, EKG, CXR)) and Patient seen in Pre Admission Testing Teaching & Discussion Pre-Anesthesia Teaching/Discussion Notes: Instructed NPO after midnight before surgery,except medications with 15 cc of water. Medication instructions provide d according to the PAT guidelines. History Surgery Operation Date: 07/08/19 08:50 Proposed Procedures p Right Total Knee Arthroplasty - Damian Golden MD Height/Weight Height: 5 ft 4 in Weight: 93.6 kg Allergies Allergy/AdvReac Type Severity Reaction Status Date / Time cephalexin Allergy Unknown Pruritus Unverified 06/17/19 10:05 tetanus toxoid, adsorbed Allergy Unknown Pruritus Unverified 06/17/19 09:11 at site tramadol AdvReac Hallucinati Verified 06/17/19 09:11 ons Medications Home Medications Medication Instructions Recorded Confirmed Last Taken aspirin 81 mg PO 3XWK 06/05/19 06/05/19 Unknown Past Medical History Medical History Carotid stenosis s/p right carotid endarterectomy Diverticular disease Obesity Temporomandibular joint disorder occasional locking ever since root canal* Exercise / Class Metabolic Activity II 4-5 Yardwork/Stairs/Walk up hill Past Family History Family History Grandmother (Paternal) Family history of diabetes mellitus Past Surgical History Surgical History History of colonoscopy History of eye surgery x3 left eye History of left knee replacement Left TKA: 07/10/17: SAB + PNB at [facility] History of right-sided carotid endarterectomy 07/2018 History of tooth extraction Past Anesthesia History No Hx of Anesthesia Complications and No Family Hx of Anesthesia Complications History of PONV No Hx of PONV and Hx of Motion Sickness (occasional) Social History Smoking Status: Never smoker Do You Dip or Chew Tobacco: No Hx Alcohol Use: No Hx Substance Use: No substance use type: does not use Review of Systems Patient denies chest pain, shortness of breath, dyspnea on exertion, reflux, cough, wheezing, palpitations. Physical Exam Vital Signs VITALS BP 152/83 P 67 TEMP 97.9 SP02 97%RA RESP 16 PHYSICAL Full neck and c-spine range of motion. Full TMJ range of motion. TMD 4 finger breaths Mallampati Score 4 (small oral opening) Dentition: intact, several implants on upper left sides, crown on molar Lungs: clear throughout to auscultation Cardiac: regular rate and rhythm, no murmurs noted Spine: normal Carotid arteries: B/L faint bruit Extremities: no edema Testing Other Testing Carotid artery duplex: 08/21/18: Right carotid artery duplex examination indicates evidence of less than 50% stenosis of the internal carotid artery. Left carotid artery duplex examination indicates evidence of less than 50% stenosis of the internal carotid artery. Degree of stenosis may be greater than reported due to heavily calcified plaque.
--- NOTE | 2019-06-17 10:43 | XRay Report ---
XR chest Pre-admission PA/Lat CLINICAL HISTORY: Preoperative chest COMPARISON STUDY: 05/25/2017 FINDINGS: The cardiac and mediastinal contours are normal. There is no evidence of focal pulmonary co nsolidation. There is no evidence of failure. No pleural effusions are visualized.[There is a stable area of linear scar/atelectasis within left midlung zone. IMPRESSION: No active disease in the chest. Electronically signed by: Jem Munoz M.D. 06/17/2019 10:42 AM
[2019-06-17 11:19] LABS: Basophils # (auto) 0.01 K/uL (0-0.2); Basophils % (auto) 0.2 %; Eosinophils # (auto) 0.08 K/uL (0-0.5); Eosinophils % (auto) 1.9 %; Hemoglobin 13.2 g/dL (12.0-16.0); Immature Granulocytes # (auto) 0.01 K/uL (0.00-0.02); Immature Granulocytes % (auto) 0.2 %; Lymphocytes # (auto) 0.97 K/uL (1.2-3.4); Lymphocytes % (auto) 22.8 %; Mean Corpuscular Hemoglobin 30.2 pg (25-34); Mean Corpuscular Hgb Conc 33.8 g/dL (32-36); Mean Corpuscular Volume 89.2 fL (80-100); Mean Platelet Volume 10.1 fL (7.4-10.4); Monocytes # (auto) 0.39 K/uL (0.11-0.59); Monocytes % (auto) 9.2 %; Neutrophils % (auto) 65.7 %; Platelet Count 152 K/uL (130-400); RDW Coefficient of Variation 13.6 % (11.5-14.5); RDW Standard Deviation 44.6 fL (36.4-46.3); Red Blood Count 4.37 M/uL (4.2-5.4); White Blood Count 4.26 K/uL (4.8-10.8)
[2019-06-17 11:30] LABS: INR 1.1 (0.9-1.1); Partial Thromboplastin Time 27.6 Seconds (21.0-31.0); Prothrombin Time 10.8 Seconds (9.0-12.0)
[2019-06-17 11:53] LABS: BUN Creatinine Ratio 29.3 (10-20); Blood Urea Nitrogen 23 mg/dl (7-18); C Reactive Protein < 0.29 mg/dl (0-0.29); Calcium 9.4 mg/dl (8.5-10.1); Carbon Dioxide 27 mmol/L (21-32); Chloride 108 mmol/L (98-107); Creatinine Clr Calc Pharmacy 68.2 ml/min; Est GFR (African American) 84.9; Est GFR (Non-African American) 73.2; Glucose 97 mg/dl (70-99); Potassium 3.9 mmol/L (3.5-5.1); Sodium 141 mmol/L (136-145)
--- NOTE | 2019-07-05 00:41 | History and Physical Report ---
DATE OF ADMISSION: 07/08/2019 CHIEF COMPLAINT: Persistent right knee pain, discomfort, and instability. HISTORY OF PRESENT ILLNESS: The patient is a 74-year-old female well known to me from a previous left knee replacement, now about 2 years out. She was actually planning on having her right knee operated on in the past, but had to cancel due to carotid endarterectomy. She has had this done and now recovered. She would like to proceed with right knee replacement. She has got a long history of knee problems. She takes various medicines without much relief. She has got global pain. The more she walks, the more it hurts. She has nighttime pain. She has been through extensive conservative treatment in the past and it is just not working. PAST MEDICAL HISTORY: 1. Elevated cholesterol. 2. TMJ. 3. Cerebrovascular disease status post carotid endarterectomy in 2018. PAST SURGICAL HISTORY: Include, 1. Left knee replacement done on 07/10/2017. 2. Carotid endarterectomy done in 2018. 3. Knee arthroscopy. ALLERGIES: KEFLEX WHICH CAUSES A RASH. ALSO DESCRIBES ALLERGIES TO TRAMADOL. CURRENT MEDICINES: 1. Baby aspirin. 2. Zocor 10 mg a day. SOCIAL HISTORY: A 74-year-old female. She is from [place]. She is . FAMILY HISTORY: Noncontributory. REVIEW OF SYSTEMS: Significant for a history of cerebrovascular disease status post carotid endarterectomy. Denies any chest pain or shortness of breath. No history of DVT or PE. No known bleeding problems. PHYSICAL EXAMINATION: GENERAL: Reveals a healthy, pleasant, middle-aged female. She looks to be in pretty good health. HEENT: Benign. NECK: Supple, no lymphadenopathy. LUNGS: Clear to auscultation. HEART: Has a regular rate and rhythm. ABDOMEN: Soft, nontender, nondistended. EXTREMITIES: Grossly neurovascularly intact except as follows. Examination of both knees shows patient ambulates independently. She does seem to limp a little bit on her right side. Examination of the right knee reveals a moderate soft tissue envelope. Small knee effusion. Tender diffusely around her knee. Range of motion is near full extension to 120 degrees of flexion. No instability. No pain with hip motion. Examination of the left knee reveals a little bit of bruising of her prepatellar bursa area. No significant knee effusion. She has got a good straight leg raise. Range of motion is 0-125. IMAGING DATA: X-rays of the right knee reveal advanced right knee DJD. She has got complete loss of her lateral joint space. She has got osteophytes off the lateral tibial plateau. ASSESSMENT: A 74-year-old female status post a left knee replacement 2 years ago with right knee degenerative joint disease. She has failed conservative treatment and would like to have her right knee replaced. She was actually planning on doing this previously, but had to cancel due to the carotid endarterectomy. PLAN: We will take her to the operating room and do the right total knee replacement. The risks and benefits of right total knee replacement were explained to the patient and include, but not limited to, DVT, PE, , infection, neurological injury, vascular injury, bleeding problem, pain, limited range of motion, stiffness, failure to relieve symptoms, incomplete relief of symptoms, need for further surgery in the future, fracture, leg length inequality, nerve palsy, etc. The patient understands and desires to proceed. Informed consent was obtained.
[~2019-07-08 09:34] MED LIST changes: -ACET-24 PO; +ACETAMINOPHEN 500 MG TAB PO SCH; -ASPEC325 PO; +BUPIVACAINE 0.5 % 5 MG/1 ML PF 10ML VIAL ONE; +BUPIVACAINE LIPOSOME/PF 266 MG, BUPIVACAINE/EPINEPHRINE 50 ML, SODIUM CHLORIDE 0.9% 30 ... INFIL SCH; +FAMOTIDINE 20 MG TAB PO SCH; -FRRG PO; +GABAPENTIN 300 MG CAP PO SCH; -IBUP-103 PO; +LR 15ML/HR IV SCH; +LR 60ML/HR IV SCH; +METOCLOPRAMIDE HCL 10 MG TABLET PO SCH; +ROPIVACAINE 0.5% 5 MG/ML 30 ML VIAL ONE; -SIMV10TA2 PO; +TRANEXAMIC ACID 1,000 MG **IV Intra-op IV SCH; -ULT50X PO; +VANCOMYCIN HCL 1,500 MG in SODIUM CHLORIDE 0.9% 500 ML IV SCH
--- NOTE | 2019-07-08 11:02 | History & Physical Bridge Note ---
Date of Service July 08, 2019 History & Physical Bridge Note I have examined the patient, reviewed the History & Physical and in the interval since the performance of the History & Physical I have noted the following changes of clinical significance: no changes noted
[2019-07-08] MEDS ORDERED: ePHEDrine sulfate 50 MG/ML AMP IV PRN (11:59)
[2019-07-08] MEDS ORDERED: ONDANSETRON INJ 2 MG/ML 2 ML VIAL IV PRN ×2 (11:59→17:15)
[2019-07-08] MEDS ORDERED: KETOROLAC 30 MG/ML VIAL IV PRN (11:59)
[2019-07-08] MEDS ORDERED: ATROPINE SULFATE 0.1 MG/ML 10ML SYR IV PRN (11:59)
[2019-07-08] MEDS ORDERED: HYDROmorphone INJ 1 MG/ML SYRINGE IV PRN (11:59)
[2019-07-08] MEDS ORDERED: MIDAZOLAM HCL 1 MG/ML 2ML VIAL ONE (12:09)
[2019-07-08] MEDS ORDERED: BACITRACIN INJ 50,000 UNIT VIAL ONE (12:53)
[2019-07-08] MEDS ORDERED: BUPIVACAINE LIPOSOME 1.3% 266 MG/20 ML VIAL ONE (12:53)
[2019-07-08] MEDS ORDERED: BUPIVACAINE 0.25% 30 ML VIAL ONE (12:53)
[2019-07-08] MEDS ORDERED: SODIUM CHLORIDE 0.9% PF 50 ML VIAL ONE (12:53)
[2019-07-08] MEDS ORDERED: EPINEPHrine INJ 1 MG/ML AMP ONE (12:54)
[2019-07-08] MEDS ORDERED: LIDOCAINE HCL 2% 2 ML VIAL/AMP(20MG/ML) INFIL ONE (13:50)
[2019-07-08] MEDS ORDERED: PROPOFOL IV EMULSION 10 MG/ML 20 ML VIAL IV ONE (13:50)
[2019-07-08] MEDS ORDERED: ONDANSETRON INJ 2 MG/ML 2 ML VIAL ONE (14:40)
--- NOTE | 2019-07-08 14:51 | Post Operative Brief Note ---
PG Immediate Post Op with CF Date of Surgery July 08, 2019 Pre & Post Diagnosis Operation Date: 07/08/19 12:30 Pre-Op Diagnosis: Right Knee Advanced Degenerative Joint Disease Post-Op Diagnosis: Right Knee Advanced Degenerative Joint Disease I identified the patient and participated in the time-out.: Yes Procedure Operation Date: 07/08/19 12:30 Actual Procedures p Right Total Knee Arthroplasty(Right) - Damian Golden MD Surgeon Damian Golden MD Clinical Engineering Director Migue, PAC Estimated Blood Loss 50 Findings Consistent with Post-Op Diagnosis Fluids 1100 cc Specimens Specimen Description: A. Right Knee Bone and Tissue Drains Jackson Catheter (A 16 Moldovan jackson catheter was inserted by Marie Koehler RN, without difficulty, clear yellow urine obtained, output to be monitored by Anesthesia.) Anesthesia Type Spinal MAC Complications none Disposition Accompanied Patient To Recovery: No Disposition: Recovery Room
--- NOTE | 2019-07-08 15:18 | XRay Report ---
XR knee RT 2V routine CLINICAL HISTORY: 74 years-old Female presenting with Surgical Post Op. TECHNIQUE: Frontal and crosstable lateral views of the right knee were obtained. COMPARISON: 05/05/2019. FINDINGS: Postsurgical changes of total right knee arthroplasty with patellar resurfacing. Expected intra-artic ular and soft tissue emphysema. Overlying skin jean marie. No malalignment. Apparent periprosthetic luce ncy subjacent to the femoral component. No periprosthetic fracture. IMPRESSION: Apparent periprosthetic lucency subjacent to the femoral component. This may be projectional/artifact ual. Correlate with the expected postsurgical appearance. The report will be called/faxed according to standard departmental protocol. Electronically signed by: Jomar Williamson M.D. 07/08/2019 3:17 PM
--- NOTE | 2019-07-08 15:42 | Operative Report ---
DATE OF OPERATION: 07/08/2019 SURGEON: Damian Golden MD. TANK INSPECTOR: TAYLOR Martin PREOPERATIVE DIAGNOSIS: Right knee degenerative joint disease. POSTOPERATIVE DIAGNOSIS: Right knee degenerative joint disease. PROCEDURE PERFORMED: Right cemented posterior stabilized total knee arthroplasty. COMPLICATIONS: None. ESTIMATED BLOOD LOSS: 50 mL. FLUID REPLACEMENT: 1100 mL crystalloid fluid replacement. ANESTHESIA: Spinal with adductor canal block. DRAINS: None. SPECIMENS: Right knee sent for pathology. TOURNIQUET TIME: 55 minutes at 300 mmHg. OPERATIVE INDICATIONS: The patient is a 74-year-old female who has had a long history of bilateral knee pain and discomfort. She has been through extensive conservative treatment in the past. She had a left knee replacement 2 years ago. She was actually planning to have her right knee replaced, but had to put this off as she had some cerebrovascular disease which needed an intervention. She has now recovered from that and elected to proceed with total knee arthroplasty. OPERATIVE FINDINGS: Operative findings were advanced right knee lateral compartment DJD. She had grade 4 [id number] disease of the lateral compartment as well as patellofemoral compartment. The medial compartment showed quite a bit of osteopenia. She had a valgus deformity to her knee. She actually had hyperextension preoperatively. OPERATIVE IMPLANTS: Operative implants consisted of: 1. Biomet Vanguard size 62.5 right posterior stabilized femoral component. 2. Biomet size 67 tibial tray. 3. A 14 mm posterior stabilized polyethylene insert. 4. A 28 x 8 all poly patella. OPERATIVE PROCEDURE: The patient was taken to the operating room, identified and placed on the operating table in supine position. All contact areas were appropriately padded. IV antibiotics were provided by anesthesia team. Spinal anesthetic and adductor canal block had been provided in the holding area. Leger catheter was placed in sterile fashion. Right thigh tourniquet was then placed and the right lower extremity was then prepped and draped in usual sterile fashion. The right leg was elevated and exsanguinated with an Esmarch and tourniquet was placed at 300 mmHg. An anterior approach of the right knee was then performed through a longitudinal incision centered over the patella. Sharp dissection was carried through subcutaneous tissues down to the level of the extensor mechanism. A medial parapatellar arthrotomy incision was made. Some subperiosteal dissection was carried out medially. The fat pad resected from beneath the patellar tendon. The lateral patellofemoral ligament was released. The patella was everted and knee was flexed. The osteophytes were taken off the distal femur. The ACL and PCL were then released from distal femur and the tibia subluxated anteriorly. External tibial alignment jig was then placed in the anterior face of the tibia and adjusted 12 mm medially. Proximal tibial cut was made to remove about 3-4 mm of bone from the medial side. The tibia was sized to a size 67. I really tried to maximize coverage due to her osteopenia. Attention was then drawn to the femur. The distal femur was entered with a sharp drill. Intramedullary canal was suctioned. A right 5-degree valgus cutting guide was placed. Distal femoral cutting block was pinned in place and the distal femoral cut was made to take an additional 3 mm of bone off distal femur. I did take some additional bone off as with the neutral cut it was barely taken any of the lateral condyle off. The knee was then brought out into extension. I then released from the IT band and posterolateral capsule to equalize the extension gap. The knee was then sized and it was downsized slightly to a 62.5. The AP cutting block was pinned parallel to the epicondylar axis, which was 3 degrees of external rotation. The anterior cut, anterior chamfer cut, posterior cut, posterior chamfer cuts were made. Box cutting guide was placed and adjusted slightly lateral and the box cut was made. The knee was flexed. The remnants of the medial and lateral menisci were excised. The osteophytes were taken off the posterior aspect of the femur. I did release the popliteus in order to equalize the flexion gap. Trial femoral component was placed. Tibial tray was pinned in maximum external rotation and drill and stem punch were used to create defect in proximal tibia for the tibial tray. The knee was then trialed and the 14 mm insert fit most appropriately. Even with this, there was a little bit lax in extension. Attention was then drawn to the patella. The patella was cleaned of all soft tissues. Patella thickness measured 21 mm in thickness, it was cut down to 13. It was sized to a size 28 patella. Lug holes were drilled for a 28 patella. Lateral osteophyte was removed. Patella button was placed. Knee was taken through range of motion, patella tracked nicely with no thumbs test. Attention was then drawn toward placement of permanent components. All trial components were removed. Bone plug was placed in the distal femur to limit blood loss. A double batch of Palacos G cement was mixed. A Biomet Vanguard size 62.5 right posterior stabilized femoral component, size 67 tibial tray, a 14 mm posterior stabilized polyethylene insert, and 28 x 8 all poly patella then cemented in place. Knee was brought out into full extension until cement hardened. A final cement check was then performed. Pericapsular tissues were injected with a total of 100 mL of combination of 20 mL of Exparel, 30 mL of normal saline, 50 mL of 0.25% Marcaine with epinephrine. The patient did receive 1 gram of tranexamic acid. The tourniquet was then let down for a tourniquet time of 55 minutes. Hemostasis was assured using electrocautery. The wound was once again irrigated. The extensor mechanism was then closed with combination of #1 PDS suture and #1 Vicryl suture in a [id number]-ye-kdsen fashion. Extensor mechanism was checked and found to be intact and subcutaneous tissues were then closed with #2 Dexon suture in a buried interrupted fashion. Skin was closed with skin jean marie. Leg was then cleaned, dried and a sterile dressing of Xeroform, 4 x 4, sterile cast padding and Noble bandage were applied. The patient then transferred to the recovery room in stable condition. The patient tolerated the procedure well with no complication. All needle and sponge counts were correct at the end of the operation. Of note, there was some concern by the radiologist regarding the post-op x-ray. I reviewed the x-ray and there was nothing abnormal or unexpected. I attest to the content of the Intraoperative Record and any orders documented therein. Any exceptions are noted below. FLAKITO
--- NOTE | 2019-07-08 16:55 | Anesthesiology Progress Note ---
Date of Service July 08, 2019 Anesthesia Post Procedure Vital Signs Vital Signs: Temp Pulse Pulse Resp BP Pulse Ox 07/08/19 16:45 37.2 C 74 16 137/85 95 07/08/19 16:35 37.2 C 76 16 118/60 97 07/08/19 16:25 37.2 C 73 16 149/86 H 97 07/08/19 16:10 67 16 109/58 L 95 07/08/19 16:00 69 16 108/57 L 97 07/08/19 15:50 64 16 122/71 97 07/08/19 15:40 67 16 115/61 97 07/08/19 15:30 66 16 124/63 98 07/08/19 15:20 65 16 110/60 98 07/08/19 15:10 69 16 137/67 100 07/08/19 15:00 68 16 131/71 100 07/08/19 14:54 36.6 C 73 16 133/71 99 07/08/19 10:13 37 C 73 18 167/93 H 96 Transfer of Care Handoff Completed per policy Notes Mental Status: alert / awake / arousable Patient Amnestic to Procedure: Yes Nausea / Vomiting: adequately controlled Pain: adequately controlled Airway Patency, RR, SpO2: stable & adequate BP & HR: stable & adequate Hydration State: stable & adequate Neuraxial Anesthesia: was administered and sensory block is resolving Anesthetic Complications: no major complications apparent
[2019-07-08] MEDS ORDERED: HYDROmorphone INJ 0.5 MG/0.5 ML SYR IV PRN (17:15)
[2019-07-08] MEDS ORDERED: bisacodyL 10 MG SUPP PR PRN (17:15)
[2019-07-08] MEDS ORDERED: HYDROmorphone HCL 2 MG TAB PO PRN (17:15)
[2019-07-08] MEDS ORDERED: NALOXONE HCL 0.4 MG/1 ML VIAL/CARP IV PRN (17:15)
[2019-07-08] MEDS ORDERED: VANCOMYCIN CONSULT ACTIVE PRN (17:15)
[2019-07-08] MEDS ORDERED: METOCLOPRAMIDE HCL INJ 5 MG/ML 2 ML VIAL IV PRN (17:15)
[2019-07-08] MEDS ORDERED: MAGNESIUM HYDROXIDE SUSP 30 ML UDC PO PRN (17:15)
[2019-07-08] MEDS ORDERED: ALUMINUM/MAGNESIUM SUSP 30 ML UDC PO PRN (17:15)
[2019-07-08] MEDS: KETOROLAC TROMETHAMINE 15 MG/ML VIAL IV SCH ×2 (18:49→23:44)
[2019-07-08] MEDS: ASCORBIC ACID 500 MG TAB PO SCH (18:50)
[2019-07-08] MEDS: FERROUS GLUCONATE 324 MG TAB PO SCH (18:50)
[2019-07-08] MEDS: ACETAMINOPHEN 500 MG TAB PO SCH (18:51)
[2019-07-08] MEDS: SODIUM CHLORIDE 0.9% 1000ML 1,000 ML IV SCH (18:52)
[2019-07-08] MEDS: DOCUSATE SODIUM 100 MG CAP PO SCH (20:33)
[2019-07-08] MEDS: ASPIRIN 81 MG ECTAB PO SCH (20:34)
[2019-07-08] MEDS ORDERED: TRANEXAMIC ACID 1,000 MG in 0.9 % SODIUM CHLORIDE 100 ML IV SCH (20:52)
[2019-07-08] MEDS ORDERED: SENNA 8.6 MG TAB PO SCH (21:00)
[2019-07-08] MEDS ORDERED: VANCOMYCIN HCL 1,500 MG in SODIUM CHLORIDE 0.9% 250 ML IV SCH (22:00)
[2019-07-08] MEDS: VANCOMYCIN HCL 1,500 MG in SODIUM CHLORIDE 0.9% 500 ML IV SCH (22:03)
[2019-07-09] MEDS: SODIUM CHLORIDE 0.9% 1000ML 1,000 ML IV SCH (05:28)
[2019-07-09] MEDS: ACETAMINOPHEN 500 MG TAB PO SCH ×2 (05:28→14:00)
[2019-07-09] MEDS: KETOROLAC TROMETHAMINE 15 MG/ML VIAL IV SCH ×2 (05:31→08:54)
[2019-07-09 06:09] LABS: Hematocrit (blood only) 33.3 % (37-47); Hemoglobin 11.2 g/dL (12.0-16.0); Mean Corpuscular Hemoglobin 29.6 pg (25-34); Mean Corpuscular Hgb Conc 33.6 g/dL (32-36); Mean Corpuscular Volume 88.1 fL (80-100); Mean Platelet Volume 9.8 fL (7.4-10.4); Platelet Count 120 K/uL (130-400); RDW Coefficient of Variation 13.7 % (11.5-14.5); RDW Standard Deviation 44.1 fL (36.4-46.3); Red Blood Count 3.78 M/uL (4.2-5.4); White Blood Count 5.81 K/uL (4.8-10.8)
[2019-07-09 06:47] LABS: BUN Creatinine Ratio 25.2 (10-20); Calcium 7.9 mg/dl (8.5-10.1); Est GFR (African American) 86.2; Est GFR (Non-African American) 74.4; Potassium 3.8 mmol/L (3.5-5.1)
[2019-07-09] MEDS: ASPIRIN 81 MG ECTAB PO SCH (08:51)
[2019-07-09] MEDS: ASCORBIC ACID 500 MG TAB PO SCH (08:51)
[2019-07-09] MEDS: DOCUSATE SODIUM 100 MG CAP PO SCH (08:52)
[2019-07-09] MEDS: FERROUS GLUCONATE 324 MG TAB PO SCH (08:52)
[2019-07-09] MEDS ORDERED: MULTIVITAMIN TAB PO SCH (09:00)
[2019-07-09] MEDS: VANCOMYCIN HCL 1,500 MG in SODIUM CHLORIDE 0.9% 500 ML IV SCH (10:50)
--- NOTE | 2019-07-09 12:04 | Progress Note ---
DATE: 07/09/2019 SUBJECTIVE: A 74-year-old white female postop day #1 from a right knee replacement. She is doing well. Pain is controlled. She is really wants to go home. No chest pain or shortness of breath. Not feeling dizzy or lightheaded. OBJECTIVE: VITAL SIGNS: Temperature 37.0. Vital signs stable. GENERAL: Shows a pleasant elderly female. She is sitting up in bed and moving around quite well. LUNGS: Clear to auscultation. HEART: Regular rate and rhythm. ABDOMEN: Soft, nontender, nondistended. EXTREMITIES: Grossly neurovascularly intact except as follows. Examination of the right leg reveals the leg to be well aligned. Dressing is clean, dry and intact. She can do good straight leg raise. She is neurologically intact. LABORATORY DATA: Hemoglobin is 11.2. Hematocrit 33.3. Electrolytes are stable. ASSESSMENT: A 74-year-old white female postop day #1 from right knee replacement, doing quite well. The pain is controlled. She is neurologically intact. She wants to go home. PLAN: 1. DVT prophylaxis including thigh-high TEDs, SCDs, and aspirin twice a day. 2. PT/OT. She will weightbear as tolerated. Right total knee protocol. 3. Pain control, doing well with current pain regimen. 4. Disposition: Plan to discharge to home with some home health likely later today.
--- NOTE | 2019-07-11 18:20 | Discharge Summary ---
ADMITTING PHYSICIAN AND SURGEON: Dr. Damian Golden. ADMITTING DIAGNOSIS: Right knee degenerative joint disease. SURGERY PERFORMED: Right total knee arthroplasty. SECONDARY DIAGNOSES: Elevated cholesterol, TMJ, cerebrovascular disease with history of carotid endarterectomy. CONSULTS: None obtained. HISTORY AND PHYSICAL EXAMINATION: Well documented in the patient's chart. HOSPITAL COURSE: The patient was admitted on 07/08/2019 underwent total knee arthroplasty, tolerated the procedure well. There were no complications. She was transferred to the PACU postoperatively and later to the orthopedic floor for further care. She was given vancomycin for antibiotic prophylaxis, AMBER stockings, SCDs and aspirin for DVT prophylaxis. Hemoglobin, hematocrit and vital signs were monitored during her hospital stay and remained stable. She did not require any blood transfusions. There were no complications. By postoperative day 1, she was tolerating a regular diet, pain was controlled with oral pain medicine. She was participating in physical therapy. On postop day 1, she was discharged home, set up with home health services. She was given printed discharge instructions as well as new prescriptions for extra strength Tylenol, aspirin and hydromorphone. Continue physical therapy, weightbearing as tolerated, AMBER stockings. Follow up approximately 2 weeks postop or sooner if there are any problems or concerns.
== END 2019-07-09 14:42 | disposition home health service (06) | DRG 470 ==
LOC: ASU 09:34 → 3E 14:55